=== PATIENT | female | born 1990 | race Hispanic/Latino ===

== ENCOUNTER 2018-02-16 16:32 | Emergency (ER) | payer MEDICARE, OTHER ==
[2018-02-16 16:32] VITALS: BMI 29.7
[2018-02-16 16:39] VITALS: BP 118/70; PULSE 92; RESP 18; TEMP 97.4; O2SAT 99
--- NOTE | 2018-02-16 17:19 | ED PDOC ---
HPI: General Adult Time Seen by Provider: 02/16/18 16:40 Chief Complaint (Nursing): Med Refill Chief Complaint (Provider): Medication Refill History Per: Patient History/Exam Limitations: no limitations Additional Complaint(s): 27 year old female presents to the ED requesting medication refill for anxiety and depression. Patient is unable to recall what medication she takes for her symptoms and she was told to come to the ED for refill from the clinic. She took her last dosage yesterday. Denies suicidal ideation, homicidal ideation or A/V hallucinations. Patient has no physical complaints. PMD: Clinic Past Medical History Reviewed: Historical Data, Nursing Documentation, Vital Signs Vital Signs: Last Vital Signs Temp 97.4 F L 02/16/18 16:35 Pulse 92 H 02/16/18 16:35 Resp 18 02/16/18 16:35 BP 118/70 02/16/18 16:35 Pulse Ox 99 02/16/18 16:35 - Medical History PMH: Anxiety, Depression - Surgical History Surgical History: (2x) - Family History Family History: States: Unknown Family Hx - Home Medications Home Medications: Ambulatory Orders Medication Instructions Recorded RX: Vit 108/Iron/Folic AC 1 tab PO DAILY 07/24/15 [ One Tablet] Docusate [Colace] 100 mg PO DAILY PRN #30 cap 07/27/15 RX: Ferrous Sulfate [Feosol] 325 mg PO BID #60 tab 07/27/15 RX: oxyCODONE/Acetaminophen 1 tab PO TID #26 tab 07/27/15 [Percocet 5/325 mg Tab] DiphenhydrAMINE [Benadryl] 25 mg PO HS #14 cap 02/16/18 Venlafaxine [Effexor] 75 mg PO DAILY #28 tab 02/16/18 - Allergies Allergies/Adverse Reactions: Allergies Allergy/AdvReac Type Severity Reaction Status Date / Time No Known Allergies Allergy Verified 07/24/15 05:23 Review of Systems ROS Statement: Except As Marked, All Systems Reviewed And Found Negative Psych: Positive for: Anxiety, Depression. Negative for: Suicidal ideation, Other (no homicidal ideation or hallucinations) Physical Exam - Reviewed Nursing Documentation Reviewed: Yes Vital Signs Reviewed: Yes - Physical Exam Comments: GENERAL APPEARANCE: Patient is awake, alert, oriented x 3, in no acute distress. SKIN: Warm, dry; (-) cyanosis ENMT: Mucous membranes moist. Airway patent: (-) stridor. NECK: Supple, FROM HEART AND CARDIOVASCULAR: (-) irregularity CHEST AND RESPIRATORY: (-) rales, (-) rhonchi, (-) wheezes; breath sounds equal. Respirations even and nonlabored. ABDOMEN: Soft, (-) distention, (-) tenderness, (-) guarding. NEURO AND PSYCH: Mental status as above. Affect: appropriate. (-) facial asymmetry. Gait: steady. Speech: clear. - ECG O2 Sat by Pulse Oximetry: 99 (RA) Pulse Ox Interpretation: Normal Medical Decision Making Medical Decision Making: Time: 1709 Initial impression: medication refill Initial plan: Crisis evaluation Reevaluation Call placed to [facility] pharmacy to confirm patient medications and dosages. 1954 Per crisis evaluation, patient to be supplied with a 2 week supply of Benadryl 25mg PO daily before bedtime and Effexor 75mg PO QD. On re-evaluation, patient offers no complaints. On exam, patient remains AAOx3, in no acute distress. Vitals stable. Lab/Diagnostic results d/w the patient in great detail. Diagnosis of medication refill d/w the patient. Based on history, exam and diagnostic results, plan will be for outpatient follow up with PMD. Patient instructed to follow-up with pmd / referral provided / the clinic in 1- 2 days without fail. Advised to take medication as prescribed. Return to the emergency room at any time for any new or worsening symptoms. Patient states she fully agrees with and understands discharge instructions. States that she agrees with the plan and disposition. Verbalized and repeated discharge instructions and plan. I have given the patient opportunity to ask any additional questions. Scribe Attestation: Documented by Celina Cabezas, acting as a scribe for Charlene Perez PA-C. Provider Scribe Attestation: All medical record entries made by the Scribe were at my direction and personally dictated by me. I have reviewed the chart and agree that the record accurately reflects my personal performance of the history, physical exam, medical decision making, and the department course for this patient. I have also personally directed, reviewed, and agree with the discharge instructions and disposition. Disposition - Clinical Impression Clinical Impression: Encounter for medication refill - Patient ED Disposition Is Patient to be Admitted: No Counseled Patient/Family Regarding: Studies Performed, Diagnosis, Need For Followup, Rx Given - Disposition Referrals: [facility] [Outside] Disposition: Routine/Home Disposition Time: 19:55 Condition: STABLE Additional Instructions: The emergency medical care you received today was directed at your acute symptoms. If you were prescribed any medication, please fill it and take as directed. It may take several days for your symptoms to resolve. Return to the Emergency Department if your symptoms worsen, do not improve, or if you have any other problems. Please contact your doctor in 2 days for re-evaluation and follow up / or call one of the physicians/clinics you have been referred to that are listed on the Patient Visit Information form that is included in your discharge packet. Bring any paperwork you were given at discharge with you along with any medications you are taking to your follow up visit. Our treatment cannot replace ongoing medical care by a primary care provider (PCP) outside of the emergency department. Prescriptions: DiphenhydrAMINE [Benadryl] 25 mg PO HS #14 cap Venlafaxine [Effexor] 75 mg PO DAILY #28 tab Instructions: General (DC) Forms: [employer] ([place]estinian) Print Language: [place] - POA Present On Arrival: None
== END 2018-02-16 20:12 | disposition home or self-care (01) ==
LOC: H.ER 16:32
DX: F32.9 Major depressive disorder, single episode, unspecified (principal); Z76.0 Encounter for issue of repeat prescription; Z79.899 Other long term (current) drug therapy